=== PATIENT | female | born 1930 | race Caucasian/White ===

== ENCOUNTER 2019-02-05 15:54 | Emergency (ER) | payer MEDICARE, BC ==
--- OUTSIDE RECORDS SUMMARY | 2019-02-05 16:01 | XMS REPORT | Continuity of Care Document ---
:1930 External Reference #:[id number] Author Name Norah Holden M.D. (transmitted by agent of provider Daisy Emmanuel ) Address [address], [place] [address] Care Team Providers Name Role Phone Erin Romero MD - Internal Care Team Information [employer] [facility] Norah Holden MD - Internal Care Team Information [employer] [phone] Medicine Problems Active Problems Provider Date Spinal stenosis of lumbar region Norah Holden M.D. Onset: 01/12/2010 Benign essential hypertension Norah Holden M.D. Onset: 01/12/2010 Essential hypertension Norah Holden M.D. Onset: 12/10/2014 Antiphospholipid syndrome Norah Holden M.D. Onset: 10/11/2015 Social History Type Date Description Comments Sex Unknown Tobacco Use Start: Unknown Never Smoked Cigarettes ETOH Use Denies alcohol use Tobacco Use Start: Unknown Patient has never smoked Recreational Drug Use Denies Drug Use Smoking Status Reviewed: 01/04/19 Patient has never smoked Exercise Type/Frequency Exercises sporadically Allergies, Adverse Reactions, Alerts Active Allergies Reaction Severity Comments Date Sulfa nausea 07/26/2009 Oxycontin bad dreams, hallucinations 07/26/2009 Codeine nausea 07/26/2009 Altace 07/26/2009 Avapro weakness 07/26/2009 Dyazide rash 07/26/2009 Amoxicillin rash 07/26/2009 Ceftin diarrhea 07/26/2009 Nicotinic Acid convulsion 07/26/2009 Citalopram diarrhea 07/26/2009 Cymbalta nausea 07/26/2009 Medications Active Medications SIG Qnty Indications Ordering Provider Date Rosuvastatin Calcium Take One Tablet 90tabs Norah Navin, 12/05/2018 By Mouth Once M.D. 5mg Tablets Daily Hydrocodone-Acetamino take 1 tablet 90tabs Norah Navin, 05/10/2014 phen by mouth 2-3 M.D. 5-325mg Tablets times a day as needed max 3/day Potassium Chloride ER Take One Tablet 180tabs Norah Cotton, 2013 By Mouth Twice M.D. 10Meq Tablets ER A Day Jobst Active For daily use 1pair 782.3 Norah Navin, 11/10/2012 15-20MMHG/Knee M.D. High/Closed Toe Misc Amlodipine Besylate Take 1 PO Daily 135tabs Norah Navin, 11/10/2012 5mg M.D. Tablets Immunizations CPT Code Status Date Vaccine Lot # [id number] Given 12/16/2017 Influenza Virus Vaccine, Quadrivalent, Split, Preservative Free [id number] Given 01/04/2017 Influenza Virus Vaccine, Quadrivalent, Split, [id number] Preservative Free 20655 Given 12/13/2014 Pneumococcal Conjugate Vaccine 13 Valent For Intramuscular Use 79659 Given 12/10/2014 Influenza Virus Vaccine, Quadrivalent, Split, [id number] Preservative Free 35067 Given 12/18/2013 Influenza Virus Vaccine, Quadrivalent, Split, [id number] Preservative Free 20086 Given 11/23/2013 Zoster (Zostavax) 07581 Given 12/11/2012 Flu Vaccine Split Virus Preservative Free For [id number] Indiv 3Yr Older [id number] Given 11/04/2011 Fluzone Vaccine [id number] 68171 Given 11/04/2011 Tdap - Tetanus/Diptheria/Acellular Pertussis [id number] 11255 Given 12/25/2009 Influenza Virus 3Yrs & Over 73321 Given 04/08/2009 Influenza Virus Vaccine, Pandemic Formulation 17021 Given 12/19/2008 Influenza Virus 3Yrs & Over 16058 Given 12/18/2007 Influenza Virus 3Yrs & Over Vital Signs Date Vital Result Comment 01/04/2019 3:59pm Height 61.75 inches 5'1.75" Weight 161.38 lb Heart Rate 73 /min BP Systolic 147 mmHg right arm BP Diastolic 88 mmHg right arm BP Systolic Sitting 142 mmHg left arm BP Diastolic Sitting 84 mmHg left arm BP Systolic Standing 142 mmHg Left Arm Body Temperature 96.5 F O2 % BldC Oximetry 97 % BMI (Body Mass Index) 29.8 kg/m2 11/03/2018 3:12pm Height 61.75 inches 5'1.75" Weight 162.00 lb Heart Rate 82 /min BP Systolic 169 mmHg BP Diastolic 88 mmHg BP Systolic Sitting 165 mmHg recheck BP Diastolic Sitting 94 mmHg recheck O2 % BldC Oximetry 96 % BMI (Body Mass Index) 29.9 kg/m2 Results Test Date Facility Test Result H/L Range Note Laboratory test 10/20/2018 [facility] Vitamin B12 > 1450 pg/mL High 180-9[address] [place] [address] [phone] Comp Metabolic 10/20/2018 [facility] Sodium 139 mmol/L Normal 135-145 Panel [address] [place] [address] [phone] Potassium 3.7 mmol/L Normal 3.5-5.0 Chloride 99 mmol/L Low 101-111 Co2 Carbon Dioxide 29 mmol/L Normal 22-32 Anion Gap 11 mmol/L Normal 2-11 Glucose 85 mg/dL Normal 70-100 Blood Urea Nitrogen 10 mg/dL Normal 6-24 Creatinine 0.95 mg/dL Normal 0.51-0.95 BUN/Creatinine Ratio 10.5 Normal 8-20 Calcium 9.9 mg/dL Normal 8.6-10.3 Total Protein 7.2 g/dL Normal 6.4-8.9 Albumin 4.4 g/dL Normal 3.2-5.2 Globulin 2.8 g/dL Normal 2-4 Albumin/Globulin Ratio 1.6 Normal 1-3 Total Bilirubin 0.70 mg/dL Normal 0.2-1.0 Alkaline Phosphatase 57 U/L Normal 34-104 Alt 13 U/L Normal 7-52 Ast 19 U/L Normal 13-39 Egfr Non- 55.5 >60 Egfr 67.2 >60 2 1 Normal Range 180 to 914 Indeterminate Range 145 to 180 Deficient Range <145 2 Because ethnic data is not always readily available, this report includes an eGFR for both -Americans and non- Americans. The National Kidney Disease Education Program (NKDEP) does not endorse the use of the MDRD equation for patients that are not between the ages of 18 and 70, are , have extremes of body size, muscle mass, or nutritional status, or are non- or non-. According to the National Kidney Foundation, irrespective of diagnosis, the stage of the disease is based on the level of kidney function: Stage Description GFR(mL/min/1.73 m(2)) 1 Kidney damage with normal or decreased GFR 90 2 Kidney damage with mild decrease in GFR 60-89 3 Moderate decrease in GFR 30-59 4 Severe decrease in GFR 15-29 5 Kidney failure <15 (or dialysis) Procedures Date Code Description Status 12/17/2014 [id number] Mammogram Completed 11/09/2011 [id number] Bone Mineral Density Test Completed 08/26/2011 [id number] Mammogram Completed 09/03/2008 [id number] Bone Mineral Density Test Completed 09/03/2008 [id number] Mammogram Completed 02/16/2008 [id number] Mammogram Completed 06/29/2007 [id number] Mammogram Completed 10/24/2001 [id number] Colonoscopy Completed Medical Devices Description No Information Available Encounters Description No Information Available Assessments Date Code Description Provider 01/04/2019 I10 Essential (primary) hypertension Norah Holden M.D. 11/03/2018 Z00.01 Encounter for general adult medical Norah Holden M.D. examination with abnormal findings 11/03/2018 I10 Essential (primary) hypertension Norah Holden M.D. 11/03/2018 E78.5 Hyperlipidemia, unspecified Norah Holden M.D. Plan of Treatment Future Appointment(s):07/06/2019 4:00 pm - Norah Holden M.D. at [facility] - [facility]01/04/2019 - Norah Holden M.D.I10 Essential ( primary) hypertensionComments:Your blood pressure is fine. Continue the same medicationFollow up:6 months for BP Functional Status Description No Information Available Mental Status Description No Information Available Referrals Description No Information Available
[2019-02-05 16:09] VITALS: BP 155/100
--- NOTE | 2019-02-05 16:46 | UC ---
Respiratory Complaint HPI - HPI Summary HPI Summary: The patient is an 88-year-old female that has had a dry nonproductive cough for 4 days. She states she was told by her primary care provider to come here to get a chest x-ray. She has had no fever or chills. She denies any chest pain or shortness of breath. She denies any nasal congestion. She denies any headache or myalgias. She states her energy level has been a little on the low side and she is having trouble preparing for Thanksgiving. - History of Current Complaint Chief Complaint: UCGeneralIllness Stated Complaint: COUGH Hx Obtained From: Patient Onset/Duration: Gradual Onset, Lasting Days Timing: Constant Severity Initially: Mild Severity Currently: Mild Pain Intensity: 0 Pain Scale Used: 0-10 Numeric Character: Cough: Nonproductive Aggravating Factors: Nothing Alleviating Factors: Nothing Associated Signs And Symptoms: Positive: Negative - Allergies/Home Medications Allergies/Adverse Reactions: Allergies Allergy/AdvReac Type Severity Reaction Status Date / Time MS Cefuroxime [From Ceftin] Allergy Diarrhea Verified 02/05/19 16:02 MS CI Pigment Blue 63 Allergy Nausea Verified 02/05/19 16:02 [From Cymbalta] MS Citalopram [Citalopram] Allergy Diarrhea Verified 02/05/19 16:02 MS Codeine [Codeine] Allergy Nausea Verified 02/05/19 16:02 MS Duloxetine [From Cymbalta] Allergy Nausea Verified 02/05/19 16:02 MS Hydrochlorothiazide Allergy Rash Verified 02/05/19 16:02 w/Triamte... [From Dyazide] MS Ramipril [From Altace] Allergy WEAKNESS Verified 02/05/19 16:02 MS Sulfa Antibiotics Allergy Nausea Verified 02/05/19 16:02 [Sulfa Antibiotics] MICOTINIC Allergy SEIZURES Uncoded 02/05/19 16:02 OXYCOTIN Allergy Hallucinati Uncoded 02/05/19 16:02 ons PMH/Surg Hx/FS Hx/Imm Hx Previously Healthy: Yes Cardiovascular History: Hypertension - Surgical History Surgical History: Yes Surgery Procedure, Year, and Place: DISC RUPTURE IN BACK, CHOLECYSTECTOMY, HYSTERECTOMY - Family History Known Family History: Positive: Unknown - Social History Alcohol Use: None Substance Use Type: None Smoking Status (MU): Never Smoked Tobacco Review of Systems All Other Systems Reviewed And Are Negative: Yes Constitutional: Positive: Fatigue Skin: Positive: Negative Eyes: Positive: Negative ENT: Positive: Negative Respiratory: Positive: Cough Cardiovascular: Positive: Negative Gastrointestinal: Positive: Negative Genitourinary: Positive: Negative Motor: Positive: Negative Neurovascular: Positive: Negative Musculoskeletal: Positive: Negative Neurological: Positive: Negative Psychological: Positive: Negative Physical Exam Triage Information Reviewed: Yes Appearance: Well-Appearing, No Pain Distress, Well-Nourished Vital Signs: Initial Vital Signs Temp 98.6 F 02/05/19 16:05 Pulse 96 02/05/19 16:05 Resp 18 02/05/19 16:05 BP 155/100 02/05/19 16:05 Pulse Ox 95 02/05/19 16:05 Vital Signs Reviewed: Yes Eyes: Positive: Conjunctiva Clear ENT: Positive: TMs normal, Uvula midline. Negative: Hearing grossly normal, Nasal congestion, Nasal drainage, Tonsillar swelling, Tonsillar exudate, Trismus , Muffled voice, Hoarse voice, Sinus tenderness Dental: Negative: Abscess @ Neck: Positive: Supple, Nontender, No Lymphadenopathy Respiratory: Positive: Lungs clear, Normal breath sounds, No respiratory distress, No accessory muscle use Cardiovascular: Positive: RRR, No Murmur Musculoskeletal: Positive: ROM Intact, No Edema Neurological: Positive: Alert Psychological Exam: Normal Skin Exam: Normal Diagnostics - Radiology No standard instances Radiology Interpretation Completed By: Radiologist Summary of Radiographic Findings: NAD Respiratory Course/Dx - Differential Dx/Diagnosis Provider Diagnosis: Cough in adult Discharge ED - Sign-Out/Discharge Documenting (check all that apply): Patient Departure All imaging exams completed and their final reports reviewed: No Studies - Discharge Plan Condition: Stable Disposition: HOME Prescriptions: Benzonatate CAP* [Tessalon CAP*] 100 - 200 mg PO TID PRN #[id number] cap PRN Reason: Cough Patient Education Materials: Upper Respiratory Infection (ED) Referrals: Norah Holden MD [Primary Care Provider] - - Billing Disposition and Condition Condition: STABLE Disposition: Home
== END 2019-02-05 17:01 | disposition home or self-care (01) ==
LOC: UCEAST 15:54
DX: R05 Cough (principal); R53.83 Other fatigue; I10 Essential (primary) hypertension; Z88.1 Allergy status to other antibiotic agents; Z88.5 Allergy status to narcotic agent; Z88.2 Allergy status to sulfonamides; Z88.8 Allergy status to other drugs, medicaments and biological substances
CPT/HCPCS: 71046; 99212; G0463